=== PATIENT | male | born 1975 | race Two or more races ===

== ENCOUNTER 2019-11-27 05:54 | Inpatient (IN) | payer BC ==
[~2019-11-27] VITALS: Ht 175.3 cm; Wt 97.0 kg
[2019-11-27] MEDS ORDERED: VANCOMYCIN 1,000 MG ONE (06:55)
[2019-11-27] MEDS ORDERED: BACITRACIN 50,000 UNIT ONE (06:55)
[2019-11-27] MEDS ORDERED: NONE PER PT (07:01)
[2019-11-27] MEDS ORDERED: LACTATED RINGERS 1,000 ML IV SCH (07:01)
[2019-11-27] MEDS ORDERED: LIDOCAINE 1%, 20ML ONE (07:16)
[2019-11-27] MEDS ORDERED: LABETALOL 5MG/ML, 20ML ONE (07:16)
[2019-11-27] MEDS ORDERED: KETAMINE 10 MG/ML, 20ML ONE (07:16)
[2019-11-27] MEDS ORDERED: MAGNESIUM SULFATE 1 GM/2 ML ONE (07:16)
[2019-11-27] MEDS ORDERED: ROCURONIUM 10MG/ML,5ML ONE (07:22)
[2019-11-27] MEDS ORDERED: CHLORHEXIDINE 15 ML UDC ONE (07:22)
[2019-11-27] MEDS ORDERED: PROPOFOL 10 MG/ML, 20ML ONE (07:22)
[2019-11-27] MEDS ORDERED: GLYCOPYRROLATE 0.2MG/1ML, 5ML ONE (07:22)
[2019-11-27] MEDS ORDERED: LIDOCAINE-MPF 2% ,5ML ONE (07:22)
[2019-11-27] MEDS ORDERED: DEXAMETHASONE 4 MG/ML, 1ML ONE (07:22)
[2019-11-27] MEDS ORDERED: MIDAZOLAM 1 MG/ML, 2ML ONE ×2 (07:23→08:24)
[2019-11-27] MEDS ORDERED: FENTANYL PF 250 MCG/5ML ONE (07:23)
[2019-11-27] MEDS ORDERED: KETOROLAC 30 MG/1 ML IVPush PRN (07:30)
[2019-11-27] MEDS ORDERED: HALOPERIDOL 5 MG/ML IV PRN (07:30)
[2019-11-27] MEDS ORDERED: CHLORHEXIDINE 15 ML UDC MM ONE (07:30)
[2019-11-27] MEDS ORDERED: DIPHENHYDRAMINE 50 MG/ML, 1ML IVPush PRN (07:30)
[2019-11-27] MEDS ORDERED: MIDAZOLAM 1 MG/ML, 2ML IV PRN (07:30)
[2019-11-27] MEDS ORDERED: METHOCARBAMOL 1,000 MG in DEXTROSE 5% 100 ML IV PRN (07:30)
[2019-11-27] MEDS ORDERED: MEPERIDINE/PF 25MG/0.5ML IVPush PRN (07:30)
[2019-11-27] MEDS ORDERED: HYDROmorphone 1 MG/ML, 1ML INJ IVPush PRN (07:30)
[2019-11-27] MEDS ORDERED: ALBUTEROL/IPRATROPIUM 2.5MG/0.5MG, 3 ML NPPB PRN (07:30)
[2019-11-27] MEDS ORDERED: PLEASE ENTER ALLERGIES MC SCH (07:30)
[2019-11-27] MEDS ORDERED: OXYcodone 5 MG/5 ML ORAL.SOL UDC PO PRN (07:30)
[2019-11-27] MEDS ORDERED: EPHEDRINE 50 MG/ML, 1ML IVPush PRN (07:30)
[2019-11-27] MEDS ORDERED: EPHEDRINE 50 MG/ML, 1ML IM PRN (07:30)
[2019-11-27] MEDS ORDERED: METOCLOPRAMIDE 5 MG/ML, 2ML IVPush PRN (07:30)
[2019-11-27] MEDS ORDERED: HYDROcodone/APAP 7.5-325MG/15ML UDC PO PRN (07:30)
[2019-11-27] MEDS ORDERED: hydrALAzine 20 MG/ML, 1ML IV PRN (07:30)
[2019-11-27] MEDS ORDERED: DIAZEPAM 5 MG/ML, 2ML IVPush PRN (07:30)
[2019-11-27] MEDS ORDERED: LABETALOL 5MG/ML, 20ML IV PRN (07:30)
[2019-11-27] MEDS ORDERED: LORazepam 2 MG/ML, 1ML IVPush PRN (07:30)
[2019-11-27] MEDS ORDERED: ONDANSETRON 2MG/ML, 2ML IVPush PRN (07:30)
[2019-11-27] MEDS ORDERED: PLEASE ENTER HEIGHT AND WEIGHT MC SCH (07:30)
[2019-11-27] MEDS ORDERED: ACETAMINOPHEN 325 MG TABLET PO PRN (07:30)
[2019-11-27] MEDS ORDERED: SCOPOLAMINE 1MG PATCH TD ONE ×2 (07:38→08:00)
[2019-11-27] MEDS ORDERED: ONDANSETRON 2MG/ML, 2ML ONE ×2 (07:39→09:09)
[2019-11-27] MEDS ORDERED: METOCLOPRAMIDE 5 MG/ML, 2ML ONE ×2 (07:39→10:13)
[2019-11-27] MEDS ORDERED: HEPARIN 1,000 UNITS/ML, 30ML IVPB ONE (08:22)
[2019-11-27] MEDS ORDERED: BACITRACIN 50,000 UNIT IRRIG ONE (08:26)
[2019-11-27] MEDS ORDERED: VANCOMYCIN 1,000 MG IM ONE (09:05)
[2019-11-27] MEDS ORDERED: FENTANYL PF 100 MCG/2ML ONE ×2 (09:58→10:40)
[2019-11-27] MEDS: FENTANYL PF 100 MCG/2ML IV PRN ×5 (10:02→11:05)
[2019-11-27] MEDS ORDERED: ACETAMINOPHEN 650 MG/20.3 ML UDC ONE (10:48)
[2019-11-27] MEDS ORDERED: OXYcodone 5 MG/5 ML ORAL.SOL UDC ONE (10:48)
[2019-11-27] MEDS ORDERED: KETOROLAC 30 MG/1 ML ONE (10:48)
[2019-11-27] MEDS ORDERED: METOCLOPRAMIDE 5 MG/ML, 2ML IVPush ONE (11:00)
[2019-11-27] MEDS ORDERED: BISACODYL 10 MG SUPP PR PRN (12:30)
[2019-11-27] MEDS ORDERED: ONDANSETRON 2MG/ML, 2ML IV PRN (12:30)
[2019-11-27] MEDS ORDERED: MAGNESIUM HYDROXIDE 8%, 30ML UDC PO PRN (12:30)
[2019-11-27] MEDS ORDERED: HYDROcodone/APAP 5/325 TABLET PO PRN (12:30)
[2019-11-27] MEDS ORDERED: PROMETHAZINE 25 MG/ML, 1ML IM PRN (12:30)
[2019-11-27] MEDS ORDERED: morphine SULFATE 10 MG/ML, 1ML IV PRN (12:30)
[2019-11-27] MEDS: D5%-0.9% NACL+KCL 20MEQ 1,000 ML IV SCH ×2 (12:56→22:30)
[2019-11-27] MEDS: CEFAZOLIN PMX 1GM/50ML 50 ML IVPB SCH (15:44)
[2019-11-27] MEDS: HYDROcodone/APAP 10/325 MG TABLET PO PRN ×2 (15:44→20:55)
[2019-11-27] MEDS: METOCLOPRAMIDE 5 MG/ML, 2ML IV SCH ×2 (16:30→20:56)
[2019-11-27] MEDS: SENNA/DOCUSATE TABLET PO SCH ×2 (16:55→20:55)
[2019-11-27] MEDS: METHOCARBAMOL 750 MG in DEXTROSE 5% 100 ML IV SCH (19:08)
[2019-11-27 20:28] VITALS: BP 129/70
[2019-11-28] MEDS: CEFAZOLIN PMX 1GM/50ML 50 ML IVPB SCH
[2019-11-28 01:28] VITALS: BP 129/70
[2019-11-28] MEDS: HYDROcodone/APAP 10/325 MG TABLET PO PRN ×3 (01:36→11:18)
[2019-11-28] MEDS: METHOCARBAMOL 750 MG in DEXTROSE 5% 100 ML IV SCH ×2 (02:55→11:19)
[2019-11-28 03:29] VITALS: BP 125/69
[2019-11-28 05:40] LABS: CALCIUM 7.9 mg/dL (8.5-10.1); CHLORIDE 110 mmol/L (98-107)
[2019-11-28 05:43] LABS: ANION GAP 5 mmol/L (5-15)
[2019-11-28 05:47] LABS: BASOPHILS # (AUTO) 0.02 x10^3/uL (0-0.1); BASOPHILS % (AUTO) 0 % (0-1); EOSINOPHILS % (AUTO) 0 % (1-7); LYMPHOCYTES # (AUTO) 1.18 x10^3/uL (1-3.4); LYMPHOCYTES % (AUTO) 9 % (22-44); MD NO; MEAN CORPUSCULAR HGB CONC 33.5 g/dL (33.2-36.2); MEAN CORPUSCULAR VOLUME 92.6 fL (81-97); MEAN PLATELET VOLUME 6.9 fL (7.4-10.4); MONOCYTES # (AUTO) 0.76 x10^3/uL (0.2-0.8); MONOCYTES % (AUTO) 6 % (2-9); NEUTROPHILS # (AUTO) 10.65 x10^3/uL (1.8-6.8); NEUTROPHILS % (AUTO) 84 % (42-75); PLATELET COUNT 220 x10^3/uL (130-400); RED BLOOD COUNT 5.12 x10^6/uL (4.38-5.82); RED CELL DISTRIBUTION WIDTH 12.8 % (9.4-14.8)
[2019-11-28] MEDS ORDERED: ENOXAPARIN 30 MG/0.3 ML SQ SCH (06:00)
[2019-11-28] MEDS: METOCLOPRAMIDE 5 MG/ML, 2ML IV SCH ×2 (06:07→11:18)
[2019-11-28 07:58] VITALS: BP 135/81
[2019-11-28] MEDS: SENNA/DOCUSATE TABLET PO SCH (09:40)
[2019-11-28 14:22] VITALS: BP 127/72
[2019-11-28] MEDS ORDERED: METH750T87 PO (14:51)
[2019-11-28] MEDS ORDERED: ENOX80SY5 SQ (14:52)
[2019-11-28] MEDS ORDERED: HYDR-3246 PO (14:53)
[2019-11-29] MEDS ORDERED: METHOCARBAMOL 750 MG TABLET PO SCH (18:30)
== END 2019-11-28 16:12 | disposition home or self-care (01) | DRG 460 ==
LOC: ORIP 05:54 → 4NE 11:50
PROVIDERS: ADMIT Orthopaedic Surgery Orthopaedic Surgery of the Spine; ATTEND Orthopaedic Surgery Orthopaedic Surgery of the Spine
PROC: 0SB40ZZ Excision of Lumbosacral Disc, Open Approach (ICD-10-PCS; 2019-11-27)
PROC: 0SG30A0 Fusion of Lumbosacral Joint with Interbody Fusion Device, Anterior Approach, Anterior Column, Open Approach (ICD-10-PCS; principal; 2019-11-27 07:30)
DX: M48.07 Spinal stenosis, lumbosacral region (principal); M51.36 Other intervertebral disc degeneration, lumbar region; G89.4 Chronic pain syndrome; I10 Essential (primary) hypertension; M54.10 Radiculopathy, site unspecified; Z82.49 Family history of ischemic heart disease and other diseases of the circulatory system
CPT/HCPCS: 36415; 72100; 74018; J3490; 80048; 85025; C1713; G0378; J0690; J1100; J1644; J1650; J1885; J2250; J2405; J2704; J3010; J3370; J3475; C1762; C1889; J2765; J2800; J3480; J7120